=== PATIENT | male | born 1970 | race Two or more races ===

== ENCOUNTER → 2018-12-12 | Outpatient (CLI) | payer OTHER ==
[~2018-12-12] MED LIST: CELE200 PO; CRUTCH4 USE; FLONASE ALLERG9.9 ML; HYDACE5 PO; IBUP800; METF500 PO; NAPR500 PO
[2018-12-24 23:54] LABS: Stool Occult Bld Immuno 1 Negative (NEGATIVE)
== END | disposition home or self-care (01) ==
LOC: LAB SHORT 08:00 → LAB 08:00 → LAB FUT 12-11 11:50
PROVIDERS: Family Medicine
DX: Z12.11 Encounter for screening for malignant neoplasm of colon (principal)
CPT/HCPCS: G0328

== ENCOUNTER 2023-01-18 13:46 | Day surgery (SDC) | payer OTHER ==
[~2023-01-18] VITALS: Ht 167.6 cm; Wt 115.1 kg
[2023-01-18] MEDS ORDERED: Vitamin C100 M1 (14:09)
[2023-01-18] MEDS ORDERED: VITAMIN D350 MC3 (14:10)
[2023-01-18] MEDS ORDERED: OMEP20ER (14:11)
[2023-01-18] MEDS ORDERED: Vitamin B-1250 MC1 (14:11)
[2023-01-18] MEDS ORDERED: FURO40 PO (14:12)
[2023-01-18] MEDS ORDERED: ROSU10TA PO (14:13)
[2023-01-18 17:26] VITALS: BP 129/87
== END 2023-01-18 17:32 | disposition home or self-care (01) ==
LOC: ORSCSDS 13:46
PROVIDERS: Internal Medicine Gastroenterology
PROC: 0DBK8ZX Excision of Ascending Colon, Via Natural or Artificial Opening Endoscopic, Diagnostic (ICD-10-PCS; principal; 2023-01-18 15:00)
PROC: 0DBM8ZX Excision of Descending Colon, Via Natural or Artificial Opening Endoscopic, Diagnostic (ICD-10-PCS; principal; 2023-01-18 15:00)
PROC: 0DBL8ZX Excision of Transverse Colon, Via Natural or Artificial Opening Endoscopic, Diagnostic (ICD-10-PCS; principal; 2023-01-18 15:00)
DX: Z12.11 Encounter for screening for malignant neoplasm of colon (principal); Z86.010 Personal history of colon polyps; D12.2 Benign neoplasm of ascending colon; D12.3 Benign neoplasm of transverse colon; D12.4 Benign neoplasm of descending colon; K57.30 Diverticulosis of large intestine without perforation or abscess without bleeding; E78.5 Hyperlipidemia, unspecified; G47.33 Obstructive sleep apnea (adult) (pediatric); E88.810 Metabolic syndrome; K21.9 Gastro-esophageal reflux disease without esophagitis; E66.01 Morbid (severe) obesity due to excess calories; Z68.41 Body mass index [BMI] 40.0-44.9, adult; Z79.899 Other long term (current) drug therapy
CPT/HCPCS: 82947; 88305; J2704; J7120

== ENCOUNTER 2023-06-28 06:25 | Day surgery (SDC) | payer OTHER ==
[~2023-06-28] VITALS: Ht 167.6 cm; Wt 92.9 kg
[2023-06-28] VITALS (9 sets, daily range): BP systolic 108–135; BP diastolic 66–84
[~2023-06-28 06:25] MED LIST changes: +FURO40 PO; +OMEP20ER; +PANT40 PO; +PYRI100 PO; +ROSU10TA PO; +SILD50TA PO; +VITAMIN D350 MC3; +Vitamin B-1250 MC1; +Vitamin C100 M1
[2023-06-28] MEDS ORDERED: NS 1,000 ML IV ONE ×2 (07:36→08:33)
[2023-06-28] MEDS ORDERED: Heparin Sodium 1000 Units/ML 10ML MDV ONE ×2 (07:36→08:33)
[2023-06-28] MEDS ORDERED: MULVITA PO (07:57)
[2023-06-28] MEDS ORDERED: Midazolam HCl 1MG / ML 2ML Vial ONE ×2 (08:33→09:37)
[2023-06-28] MEDS ORDERED: FentaNYL Citrate 50 MCG/ML 2 ML Injection ONE ×2 (08:33→09:37)
--- NOTE | 2023-06-28 10:23 | NUR ---
GROIN SITE SOFT AND NON-TENDER PER PT. NO BLEEDING NOTED. PT A&Ox4.
--- NOTE | 2023-06-28 10:52 | NUR ---
GROPIN SITE SOFT AND NON-TENDER. NO BLEEDING NOTED.
[2023-06-28] MEDS ORDERED: Potassium Chloride 20 MEQ TabCR PO ONE (11:45)
--- NOTE | 2023-06-28 11:57 | NUR ---
DR CARNEY NOTIFIED OF LOW POTASSIUM. 40MEQ OF POTASSIUM ORDERED AND ADMINISTERED. PT GIVEN LUNCH.
--- NOTE | 2023-06-28 12:47 | NUR ---
DR CARNEY IN TO SPEAK TO PT.
--- NOTE | 2023-06-28 13:09 | NUR ---
DR CARNEY AT BEDSIDE DISCUSSING PROCEDURE AND FUTURE PLAN OF CARE. DR CARNEY ALSO DISCUSSED LOW POTASSIUM W/ PT AND THE NEED TO FOLLOW-UP WITH PTs PCP AND SURGEON AND TO REQUEST TO RE-DRAW BLOOD TOMORROW. DR CARNEY OK TO SEND PT HOME. PT GIVEN DC INSTRUCTIONS AND VERBALIZED UNDERSTANDING. IV OUT. PT CHNAGED. GROIN SITE SOFT AND NON-TENDER PER PT. NO BLEEDING NOTED. PT ALSO INFORMED TO MONITOR FOR SIGNS OF DIZZINESS, LIGHTHEADED, FEELING OF SKIPPED HEART BEATS, AND SOB AND TO SEEK IMMEDIATED MEDICAL ATTENTION IF EXPERIENCED. PT VERBALIZED UNDERSTANDING. PT TAKEN TO [facility] VIA WC. SO TO DRIVE PT HOME.
== END 2023-06-28 13:32 | disposition home or self-care (01) ==
LOC: MHTC 06:25
DX: I86.1 Scrotal varices (principal); I87.2 Venous insufficiency (chronic) (peripheral); I83.813 Varicose veins of bilateral lower extremities with pain; K21.9 Gastro-esophageal reflux disease without esophagitis; E78.5 Hyperlipidemia, unspecified; G47.33 Obstructive sleep apnea (adult) (pediatric); Z88.0 Allergy status to penicillin; Z88.5 Allergy status to narcotic agent; Z79.899 Other long term (current) drug therapy
CPT/HCPCS: 37241; 75833; 76937; 84132; 99152; 99153; A9270; C1769; C1887; C1894; J1644; J2250; J3010; J7030; Q9967